=== PATIENT | female | born 1955 | race Native Hawaiian/Other Pacific Islander ===

== ENCOUNTER 2018-05-22 22:41 | Emergency (ER) | payer OTHER ==
[~2018-05-22] VITALS: Ht 167.6 cm; Wt 78.5 kg
[2018-05-22] MEDS ORDERED: REMERON SOLTAB15 MG PO (22:54)
[2018-05-22] MEDS ORDERED: [UNRECOGNIZED DRUG - CODE] PO (22:55)
[2018-05-22] MEDS ORDERED: QUETIAPINE100 MG PO (22:56)
[2018-05-22] MEDS ORDERED: QUETIAPINE400 MG PO (22:56)
[2018-05-22] MEDS ORDERED: SENNA-PLUS1 TAB PO (22:57)
[2018-05-22] MEDS ORDERED: LEVO0.08 PO (22:59)
[2018-05-22 23:04] LABS: PLATELET COUNT 478 K/uL (152-353)
[2018-05-22] MEDS ORDERED: FLUOXETINE20 MG PO (23:04)
[2018-05-22] MEDS ORDERED: BENZ1TAB43 PO (23:04)
[2018-05-22] MEDS ORDERED: LORA0.5T17 PO (23:05)
[2018-05-22] MEDS ORDERED: MELATONIN5 M2 PO (23:05)
[2018-05-22 23:09] LABS: POTASSIUM 3.9 mmol/L (3.6-5.2)
[2018-05-22 23:25] VITALS: BP 116/76; TEMP 98.1
== END 2018-05-22 23:30 | disposition other institution (70) ==
LOC: ED 22:41
PROVIDERS: Internal Medicine
DX: F20.0 Paranoid schizophrenia (principal); E11.9 Type 2 diabetes mellitus without complications; R00.0 Tachycardia, unspecified; I45.19 Other right bundle-branch block; Z04.6 Encounter for general psychiatric examination, requested by authority
CPT/HCPCS: 36415; 80053; 85027; 93005; 99285